=== PATIENT | male | born 1945 | race Caucasian/White ===

== ENCOUNTER 2017-05-17 17:57 | Observation (INO) ==
[2017-05-17] MEDS ORDERED: Ondansetron 4 MG/2 ML VIAL IVP ONE ×2 (18:09→19:44)
[2017-05-17] MEDS ORDERED: 0.9 % Sodium Chloride 1,000 ML IVC ONE (18:09)
--- NOTE | 2017-05-17 18:21 | Emergency Department Note ---
Disposition Clinical Impression: Calculus of left kidney Abdominal pain Qualifiers: Abdominal location: generalized Qualified Code(s): R10.84 - Generalized abdominal pain Vomiting Qualifiers: Vomiting type: unspecified Vomiting Intractability: non-intractable Nausea presence: with nausea Qualified Code(s): R11.2 - Nausea with vomiting, unspecified Disposition: Admitted As Inpatient Condition: Fair Referrals: NONE,PCP [Primary Care Provider] - Forms: ED Satisfaction Letter, Work/School Release Time of Disposition: 19:44 Abdominal Pain HPI - General Chief Complaint: ED Abdominal Pain Stated Complaint: ABD PAIN N/V/D Time Seen by Provider: 05/17/17 18:08 Source: patient Mode of arrival: EMS Limitations: no limitations Vital Signs Reviewed: Yes - History of Present Illness HPI Narrative: Marco Redman is a 71 year old male presenting with 12 hours of abdominal pain , nausea, vomiting, and diarrhea. He describes the pain as 8.5/10 in intensity, sharp in quality, and gradual in onset. He complains of anorexia. He states that he has had multiple abdominal surgeries, but he is unsure of what was done. He states that this pain feels similar to kidney stones that he has had in the past, but he denies urinary complaints. Pt Subjective Complaint: abdominal pain Onset (ago): day(s) Consistency: constant Location: diffuse Quality: aching - Related Data Home Medications Medication Instructions Recorded Confirmed No Known Home Drugs 05/17/17 05/17/17 Allergies Allergy/AdvReac Type Severity Reaction Status Date / Time No Known Allergies Allergy Verified 05/17/17 20:41 Constitutional: Reports: fever (subjective) Eyes: Denies: eye pain, eye discharge, vision change ENT ED: Denies: ear pain, throat pain, dental pain, hearing loss, epistaxis, congestion, dysphagia Cardiovascular: Denies: chest pain Respiratory: Denies: dyspnea Gastrointestinal: Reports: abdominal pain, nausea, vomiting, diarrhea. Denies: constipation, melena, hematochezia Genitourinary: Denies: urgency, dysuria, frequency, hematuria Musculoskeletal: Denies: back pain, neck pain, arthralgia, myalgia Integumentary: Denies: rash, abrasion, lesions Neurological: Denies: headache, weakness, numbness, paresthesias, confusion, abnormal gait, vertigo Psychiatric: Denies: anxiety, depression, suicidal thoughts, homicidal thoughts , auditory hallucinations, visual hallucinations Endocrine: Denies: fatigue Hematological/Lymphatic: Denies: easy bleeding, easy bruising Allergic/Immunologic: Denies: facial swelling, urticaria Physical Exam - General Limitations: no limitations General appearance: alert, in no apparent distress - Head Head exam: atraumatic, normocephalic - Eye Eye exam: Present: normal appearance, PERRL, EOMI - ENT ENT exam: normal exam, normal oropharynx, mucous membranes moist - Expanded ENT Exam External ear exam: Present: normal external inspection Mouth exam: Present: normal external inspection Teeth exam: Present: normal inspection Throat exam: Present: normal inspection - Neck Neck exam: Present: normal inspection, full ROM, trachea midline - Chest Chest inspection: Present: normal inspection, symmetric chest wall rise - Respiratory Respiratory exam: Present: normal lung sounds bilaterally. Absent: respiratory distress, accessory muscle use - Cardiovascular Cardiovascular exam: Present: regular rate, normal rhythm, normal heart sounds, +S1, +S2 - Abdominal Exam Abdominal exam: Present: soft, normal bowel sounds. Absent: distention, guarding, rebound, Mckinney's sign, Rovsing's sign, tenderness at McBurney's Point Abdominal tenderness: Present: diffuse, moderate - Extremities Exam Extremities exam: Present: normal inspection, full ROM. Absent: tenderness, pedal edema - Expanded Upper Extremity Exam Shoulder exam: Present: normal inspection, full ROM Arm exam: Present: normal inspection, full ROM Elbow exam: Present: normal inspection, full ROM Forearm/Wrist exam: Present: normal inspection, full ROM Hand exam: Present: normal inspection, full ROM Vascular exam: Normal: capillary refill, radial pulse - Expanded Lower Extremity Exam Hip/Pelvis exam: Present: normal inspection, full ROM Upper leg exam: Present: normal inspection, full ROM Knee exam: Present: normal inspection, full ROM Lower leg exam: Present: normal inspection, full ROM Ankle exam: Present: normal inspection, full ROM Foot/toe exam: Present: normal inspection, full ROM Neurovascular/Tendon exam: Absent: motor deficit, sensory deficit, tendon deficit - Back Exam Back exam: Present: normal inspection, full ROM. Absent: tenderness - Neurological Exam Neurological exam: Present: alert, oriented X3 - Expanded Neurological Exam Patient oriented to: Present: person, place, time Speech: Present: fluid speech Coma Scale Eye Opening: Spontaneous Coma Scale Motor Response: Obeys Commands Coma Scale Verbal Response: Confused Coma Scale Total: 14 - Psychiatric Psychiatric exam: Present: normal affect, normal mood - Skin Skin exam: Present: warm, dry, intact, normal color Course Course Narrative: Patient presents via EMS with 12 hours of abdominal pain, nausea, vomiting, and diarrhea. Patient borderline tachycardic on presentation. Ordered lactic acid, blood cultures, CBC, CMP, lipase, amylase, and urinalysis. Will investigate for cardiac cause with EKG and troponin. CT abd/pelv demonstrated a stone in the left renal pelvis with significant surrounding infiltration. Labs returned without significant findings. Case was discussed with urology, Dr. Lucero, who recommended admission. Patient discussed with admitting hospitalist who accepted the patient. Urology consult placed. - Consultations Consultation #1: I spoke with Dr. Nic gee to consult and admit to Hospitalist. Time: 20:15 Consultation #2: I spoke with Hospitalist Dr. Alexy gee to admit. Time: 20:30 Vital Signs Temperature 98.2 F 05/17/17 17:59 Pulse Rate 105 05/17/17 17:59 Respiratory Rate 22 05/17/17 17:59 Blood Pressure 179/109 05/17/17 17:59 O2 Sat by Pulse Oximetry 97 05/17/17 17:59 Temperature 98.2 F 05/17/17 17:59 Pulse Rate 103 05/17/17 20:26 Respiratory Rate 20 05/17/17 20:26 Blood Pressure 184/117 05/17/17 20:26 O2 Sat by Pulse Oximetry 95 05/17/17 20:26 Oxygen Delivery Oxygen Delivery Room Air Abdominal Pain - Medical Records Medical records reviewed: Yes I reviewed the patient's medical records. - Lab Data Lab results reviewed: Yes I reviewed the patient's lab results. Result diagrams: 05/17/17 19:38 05/17/17 18:34 Lab Results 05/17/17 05/17/17 05/17/17 Range/Units 18:33 18:34 18:34 WBC (4.3-11.1) K/mcL RBC (4.19-5.50) M/mcL Hgb (12.9-16.9) g/dL Hct (37.5-50.1) % MCV (83.0-100.0) fL MCH (28.0-33.3) pg MCHC (31.6-35.5) g/dL RDW (11.5-14.5) % Plt Count (140-400) K/mcL MPV (9.4-12.4) fL Immature Gran % (0-4) % Seg Neutrophils % % Lymphocytes % % Monocytes % % Eosinophils % % Basophils % % Neutrophils # (1.6-8.9) K/mcL Lymphocytes # (0.6-4.6) K/mcL Monocytes # (0.0-1.3) K/mcL Eosinophils # (0.0-0.6) K/mcL Basophils # (0.0-0.2) K/mcL Sodium 139 (136-145) mEq/L Potassium 3.8 (3.5-5.1) mEq/L Chloride 106 (98-107) mEq/L Carbon Dioxide 25 (23-29) mEq/L BUN 13 (8-23) mg/dL Creatinine 0.95 (0.70-1.30) mg/dL Est GFR ( Amer) > 60 (> 60) Est GFR (Non-Af Amer) > 60 (> 60) BUN/Creatinine Ratio 14 (6-26) Glucose 143 H (70-105) mg/dL Calculated Osmolality 291 (280-300) Lactic Acid (0.5-2.2) mmol/L Calcium 9.4 (8.6-10.3) mg/dL Total Bilirubin 0.6 (0.3-1.0) mg/dL Direct Bilirubin 0.2 (0.0-0.2) mg/dL Indirect Bilirubin 0.4 (0.0-1.2) mg/dL AST 13 (13-39) Units/L ALT 8 (7-52) Units/L Alkaline Phosphatase 101 (34-104) Units/L Troponin I < 0.03 (< 0.04) ng/mL Serum Total Protein 7.3 (6.4-8.9) g/dL Albumin 4.0 (3.5-5.7) g/dL Globulin 3.3 (2.4-3.5) g/dL Albumin/Globulin Ratio 1.2 (1.1-2.2) Amylase 40 (29-103) Units/L Lipase 14 (11-82) Units/L Urine Color (Yellow) Urine Clarity (Clear) Urine pH (5.0-8.0) pH Units Ur Specific [place] (1.010-1.025) Urine Protein (Neg-Trace) mg/dL Urine Glucose (UA) (Normal) mg/dL Urine Ketones (Negative) mg/dL Urine Blood (Negative) Urine Nitrite (Negative) Urine Bilirubin (Negative) Urine Urobilinogen (Normal) mg/dL Ur Leukocyte Esterase (Negative) Urine Microscopic RBC (0-3) per hpf Urine Microscopic WBC (0-3) per hpf Ur Squamous Epith Cells (None-Few) per lpf Urine Bacteria (None-Few) per hpf Hyaline Casts (None-Few) per lpf Ur Culture Indicated? (NO) Specimen Rejected Clotted 05/17/17 05/17/17 05/17/17 Range/Units 18:34 19:31 19:38 WBC 8.7 (4.3-11.1) K/mcL RBC 5.39 (4.19-5.50) M/mcL Hgb 15.9 (12.9-16.9) g/dL Hct 47.1 (37.5-50.1) % MCV 87.4 (83.0-100.0) fL MCH 29.5 (28.0-33.3) pg MCHC 33.8 (31.6-35.5) g/dL RDW 14.8 H (11.5-14.5) % Plt Count 159 (140-400) K/mcL MPV 11.1 (9.4-12.4) fL Immature Gran % 0.7 (0-4) % Seg Neutrophils % 86.6 % Lymphocytes % 5.2 % Monocytes % 6.7 % Eosinophils % 0.5 % Basophils % 0.3 % Neutrophils # 7.5 (1.6-8.9) K/mcL Lymphocytes # 0.5 L (0.6-4.6) K/mcL Monocytes # 0.6 (0.0-1.3) K/mcL Eosinophils # 0.0 (0.0-0.6) K/mcL Basophils # 0.0 (0.0-0.2) K/mcL Sodium (136-145) mEq/L Potassium (3.5-5.1) mEq/L Chloride (98-107) mEq/L Carbon Dioxide (23-29) mEq/L BUN (8-23) mg/dL Creatinine (0.70-1.30) mg/dL Est GFR ( Amer) (> 60) Est GFR (Non-Af Amer) (> 60) BUN/Creatinine Ratio (6-26) Glucose (70-105) mg/dL Calculated Osmolality (280-300) Lactic Acid 1.2 (0.5-2.2) mmol/L Calcium (8.6-10.3) mg/dL Total Bilirubin (0.3-1.0) mg/dL Direct Bilirubin (0.0-0.2) mg/dL Indirect Bilirubin (0.0-1.2) mg/dL AST (13-39) Units/L ALT (7-52) Units/L Alkaline Phosphatase (34-104) Units/L Troponin I (< 0.04) ng/mL Serum Total Protein (6.4-8.9) g/dL Albumin (3.5-5.7) g/dL Globulin (2.4-3.5) g/dL Albumin/Globulin Ratio (1.1-2.2) Amylase (29-103) Units/L Lipase (11-82) Units/L Urine Color Yellow (Yellow) Urine Clarity Clear (Clear) Urine pH 6.0 (5.0-8.0) pH Units Ur Specific [place] 1.022 (1.010-1.025) Urine Protein 30 H (Neg-Trace) mg/dL Urine Glucose (UA) Normal (Normal) mg/dL Urine Ketones Negative (Negative) mg/dL Urine Blood Negative (Negative) Urine Nitrite Negative (Negative) Urine Bilirubin Negative (Negative) Urine Urobilinogen Normal (Normal) mg/dL Ur Leukocyte Esterase Negative (Negative) Urine Microscopic RBC 5-15 H (0-3) per hpf Urine Microscopic WBC 3-5 H (0-3) per hpf Ur Squamous Epith Cells Many H (None-Few) per lpf Urine Bacteria None Seen (None-Few) per hpf Hyaline Casts None Seen (None-Few) per lpf Ur Culture Indicated? NO (NO) Specimen Rejected - Radiology Data Radiology results reviewed: Yes I reviewed the patient's radiology results. Abdomen/Pelvis CT 05/17/17 18:12 IMPRESSION: 1. Marked infiltration adjacent to the left renal pelvis. No significant hydronephrosis. There is 1 or 2 mm left UPJ calculus with 5 x 8 mm calculus in the left renal pelvis. Additional nonobstructive left renal calculi. 2. Cholelithiasis with no acute features. 3. No CT evidence of appendicitis. 4. Mild prostatomegaly. D/ / 05/17/2017 19:14:45 Chong Ahmadi MD / ladan Interpreting Provider: Chong Ahmadi MD - EKG Data EKG attestation: Yes I reviewed and interpreted this EKG. EKG shows normal: sinus rhythm Rate: normal Rhythm: NSR [place]/QRS: left axis deviation Interpretation: no acute changes Attestation Statement - Attestation Attestation: I examined this patient and my medical decision-making was reviewed with the Resident Physician. I agree with the documented findings, disposition and treatment plan as described except to the extent set forth below. Pt presents with abdominal pain, n/v since last night. Pt states it feels like his previous kidney stones. Pt has generalized abdominal tenderness or exam. Pt denies cp, soa. Pt had a stone in the renal pelvis with stranding. Pt still had n/v after medication and is still having pain so we will admit. We talked to Urology Dr. Nic gee to admit to Hospitalist and he will consult. Spoke with Hospitalist gerard to admit.
[2017-05-17 19:09] LABS: Alanine Aminotransferase 8 Units/L (7-52); Albumin/Globulin Ratio 1.2 (1.1-2.2); Alkaline Phosphatase 101 Units/L (34-104); Amylase 40 Units/L (29-103); Aspartate Amino Transferase 13 Units/L (13-39); BUN/Creatinine Ratio 14 (6-26); Bilirubin,Direct 0.2 mg/dL (0.0-0.2); Bilirubin,Indirect 0.4 mg/dL (0.0-1.2); Bilirubin,Total 0.6 mg/dL (0.3-1.0); Blood Urea Nitrogen 13 mg/dL (8-23); Calcium 9.4 mg/dL (8.6-10.3); Carbon Dioxide 25 mEq/L (23-29); Chloride 106 mEq/L (98-107); Globulin 3.3 g/dL (2.4-3.5); Glucose 143 mg/dL (70-105); Lipase 14 Units/L (11-82); Osmolality,Calculated 291 (280-300); Potassium 3.8 mEq/L (3.5-5.1); Sodium 139 mEq/L (136-145); Total Protein 7.3 g/dL (6.4-8.9); eGFR For African Americans > 60 (> 60); eGFR For Non-African Americans > 60 (> 60)
[2017-05-17 19:36] LABS: Bilirubin,Urine Negative (Negative); Blood,Urine Negative (Negative); Clarity,Urine Clear (Clear); Color,Urine Yellow (Yellow); Glucose,Urine (UA) Normal (Normal); Ketones,Urine Negative (Negative); Leukocyte Esterase,Urine Negative (Negative); Nitrite,Urine Negative (Negative); Protein,Urine 30 mg/dL (Neg-Trace); Specific Gravity,Urine 1.022 (1.010-1.025); Urobilinogen,Urine Normal (Normal)
[2017-05-17 19:38] LABS: Bacteria,Urine None Seen per hpf (None-Few); Hyaline Casts,Urine None Seen per lpf (None-Few); Squamous Epithelial Cell,Urine Many per lpf (None-Few)
[2017-05-17 19:49] LABS: Basophils % 0.3 %; Eosinophils % 0.5 %; Hematocrit 47.1 % (37.5-50.1); Hemoglobin 15.9 g/dL (12.9-16.9); Immature Granulocytes % 0.7 % (0-4); Lymphocytes # 0.5 K/mcL (0.6-4.6); Lymphocytes % 5.2 %; Mean Corpuscular HGB Conc 33.8 g/dL (31.6-35.5); Mean Corpuscular Hemoglobin 29.5 pg (28.0-33.3); Mean Corpuscular Volume 87.4 fL (83.0-100.0); Mean Platelet Volume 11.1 fL (9.4-12.4); Monocytes # 0.6 K/mcL (0.0-1.3); Monocytes % 6.7 %; Neutrophils # 7.5 K/mcL (1.6-8.9); Platelet Count 159 K/mcL (140-400); Red Blood Count 5.39 M/mcL (4.19-5.50); Red Cell Distribution Width 14.8 % (11.5-14.5); Segmented Neutrophils % 86.6 %
[2017-05-17] MEDS ORDERED: cefTRIAXone 1,000 MG in Water for inj. (sterile) 20 ML 10 ML IVP ONE (20:22)
[2017-05-17] MEDS ORDERED: Acetaminophen 325 MG TABLET PO PRN (20:35)
[2017-05-17] MEDS ORDERED: Naloxone 0.4 MG/ML INJ IVP PRN (20:35)
[2017-05-17] MEDS ORDERED: Ondansetron 4 MG/2 ML VIAL IVP PRN (20:37)
--- NOTE | 2017-05-17 20:40 | Internal Med History&Physical ---
Date of Encounter: 05/17/17 Time of Encounter: 20:38 Assessment and Plan (1) Calculus of left kidney Current visit: Yes Status: Acute Admit to hospitalist. Consult urology. Nothing by mouth after midnight. Pain control. Antiemetics. Patient had received a dose of ceftriaxone. Urine looks clean. Patient is afebrile. Hold off on further antibiotics. Gentle hydration. (2) Vomiting Current visit: Yes Status: Acute Symptomatic treatment as above. Likely stemming from the kidney stone. Qualifiers: Vomiting type: unspecified Vomiting Intractability: non-intractable Nausea presence: with nausea Qualified Code(s): R11.2 - Nausea with vomiting, unspecified (3) DVT prophylaxis Current visit: Yes Status: Acute Heparin subcutaneous Internal Medicine - H&P: HPI Chief complaint: Nausea vomiting Admitted From: Emergency Dept Plans for Post Hospital Care: Home History of present illness: Mr. Redman is a 71 year old male with history of kidney stones who has been dealing with abdominal pain mainly in the left flank, nausea and vomiting for about 12 hours or so. Pain is very intense and sharp in quality. He presented to the emergency department and workup showed unremarkable urine. Labs were mostly unremarkable as well. CT abdomen and pelvis showed marked infiltration adjacent to the left renal pelvis. There is one or 2 mm left UPJ calculus with 5 x 8 mm calculus in the left renal pelvis. There was additional nonobstructive left renal calculi. The patient denies any fever, or chills, headache, blurry vision, chest pain, shortness of breath, neurological symptoms. Urology were consulted in the emergency department and recommended admission. Patient received a dose of Rocephin in the ED. Past Med Surg Social Fam HX - Past Medical History Medical history: hyperlipidemia, hypertension Psychiatric history: anxiety, depression - Social History Smoking Status: Current every day smoker Smokeless Tobacco Status: No Alcohol use: rarely Drug use: none Internal Medicine - H&P: Meds 3 Allergy/AdvReac Type Severity Reaction Status Date / Time No Known Allergies Allergy Verified 05/17/17 18:10 All Systems PM: A 10-system review of systems was performed and is negative for pertinent findings except as documented above in the HPI. Review of systems: All systems reviewed are negative except for as mentioned above - Constitutional Vitals: Temp Pulse Resp BP Pulse Ox 98.2 F 103 20 184/117 95 04/02/18 17:59 05/17/17 20:26 05/17/17 20:26 05/17/17 20:26 05/17/17 20:26 Exam: GEN: NAD HEENT: AT, NC, No cyanosis, oral mucosa is moist, No JVD Lymphatics: No lymphadenoapthy Eyes: Extrocular muscles intact, anicteric CVS:RRR. S1, S2, No m/r/g RESP: CTAB ABD: Soft, NT, ND, +BS EXT: No edema, No rashes, 2+ DP. Left CVA tenderness NEURO: Nonfocal, CN II-XII intact, No focal motor or sensory deficits Psych: Cooperative, Not anxious or depressed Internal Med - H&P Results - Labs CBC & Chem 7: 05/17/17 19:38 05/17/17 18:34 Labs: Short CBC 05/17/17 Range/Units 19:38 WBC 8.7 (4.3-11.1) K/mcL Hgb 15.9 (12.9-16.9) g/dL Hct 47.1 (37.5-50.1) % Plt Count 159 (140-400) K/mcL Neutrophils # 7.5 (1.6-8.9) K/mcL BMP 05/17/17 18:34 Sodium 139 Potassium 3.8 Chloride 106 Carbon Dioxide 25 BUN 13 Creatinine 0.95 Glucose 143 H Calcium 9.4 Cardiac Enzymes 05/17/17 Range/Units 18:34 Troponin I < 0.03 (< 0.04) ng/mL Liver Function 05/17/17 Range/Units 18:34 Total Bilirubin 0.6 (0.3-1.0) mg/dL Direct Bilirubin 0.2 (0.0-0.2) mg/dL AST 13 (13-39) Units/L ALT 8 (7-52) Units/L Alkaline Phosphatase 101 (34-104) Units/L Albumin 4.0 (3.5-5.7) g/dL Urine 05/17/17 Range/Units 19:31 Urine Color Yellow (Yellow) Urine Clarity Clear (Clear) Urine pH 6.0 (5.0-8.0) pH Units Ur Specific [place] 1.022 (1.010-1.025) Urine Protein 30 H (Neg-Trace) mg/dL Urine Glucose (UA) Normal (Normal) mg/dL - Impressions ITS Impressions Abdomen/Pelvis CT 05/17/17 18:12 IMPRESSION: 1. Marked infiltration adjacent to the left renal pelvis. No significant hydronephrosis. There is 1 or 2 mm left UPJ calculus with 5 x 8 mm calculus in the left renal pelvis. Additional nonobstructive left renal calculi. 2. Cholelithiasis with no acute features. 3. No CT evidence of appendicitis. 4. Mild prostatomegaly. D/ : / 05/17/2017 19:14:45 Chong Ahmadi MD / ladan Interpreting Provider: Chong Ahmadi MD
[2017-05-17] MEDS ORDERED: Ketorolac 30 MG/ML VIAL IVP PRN (21:19)
[2017-05-17] MEDS: 0.9 % Sodium Chloride 1,000 ML IVC SCH (22:09)
[2017-05-17] MEDS: *HR* Heparin 5,000 UNIT/ML VIAL SQ SCH (22:15)
[2017-05-18] MEDS: *HR* Heparin 5,000 UNIT/ML VIAL SQ SCH ×3 (06:00→20:11)
--- NOTE | 2017-05-18 07:23 | Urology - Consult Note ---
Date of Encounter: 05/18/17 Time of Encounter: 07:21 - Assessment and Plan (1) Calculus of left kidney Current Visit: Yes Status: Acute Assessment and plan: 71-year-old man presents with a history of abdominal pain and nephrolithiasis. I reviewed his CT scan. He is having some discomfort. He wishes to have a stone removed. I recommend proceeding with a left ureteroscopy, laser lithotripsy, and stent placement. He was informed of the risks of the procedure including but not limited to bleeding, infection, injury to other structures, need for further procedures, stent irritation, incomplete fragmentation, ureteral perforation, need for nephrostomy tube, need for open repair, risks unforeseen, and the risk of anesthesia. He is willing to proceed. Urology CN:TRENT[place] Consult date: 05/18/17 Reason for consult Urology: Other (Left ureteral stone) History of present illness: 71-year-old male with a history nephrolithiasis presents with a history of abdominal pain. The pain was located in the lower abdomen and radiated to the groin. He had noted the pain for about 3 days. He reports having a history of kidney stones. He presented to the emergency room. A CT scan was performed which showed concern for an obstructing left proximal ureteral stone as well as a few small stones within the left kidney. He denies any fevers or chills. He has noted some nausea. Past Med Surg Social Fam HX - Past Medical History Medical history: hyperlipidemia, hypertension Psychiatric history: anxiety, depression - Social History Smoking Status: Current every day smoker Smokeless Tobacco Status: No Alcohol use: rarely Drug use: none - Family History Father Hx Family Cancer: Yes (Unsure what type) Medications and Allergies No Known Home Drugs 05/17/17 [History] 3 Allergy/AdvReac Type Severity Reaction Status Date / Time No Known Allergies Allergy Verified 05/17/17 20:41 Review of Systems - Constitutional no chills, no fever(s) - EENT Nose, mouth and throat: no dizziness - Cardiovascular no chest pain - Respiratory no dyspnea - Gastrointestinal nausea, no vomiting - Genitourinary flank pain, no hematuria - Musculoskeletal no back pain - Integumentary no erythema, no rash - Neurological no weakness - Psychiatric no suicidal ideation - Hematologic/Lymphatic no easy bleeding - Allergic/Immunologic no wheezing Exam Initial Vital Signs Temp Pulse Resp BP Pulse Ox 98.2 F 105 22 179/109 97 05/17/17 17:59 05/17/17 17:59 05/17/17 17:59 05/17/17 17:59 05/17/17 17:59 - General physical appearance Present: well developed, well nourished, no distress - Eyes Absent: icteric - ENT Present: normal nares - Neck Present: trachea midline - Respiratory Present: normal respiratory effort - Cardiovascular Cardiovascular exam IM: RRR - Abdomen Abdomen: Present: soft - Integumentary Present: no rash - Neurologic Present: normal coordination - Musculoskeletal Present: other (Normal strength) Urology Results - Labs 05/17/17 19:38 05/17/17 18:34 Abnormal lab results RDW 14.8 % (11.5-14.5) H 05/17/17 19:38 Lymphocytes # 0.5 K/mcL (0.6-4.6) L 05/17/17 19:38 Glucose 143 mg/dL (70-105) H 05/17/17 18:34 Urine Protein 30 mg/dL (Neg-Trace) H 05/17/17 19:31 Urine Microscopic RBC 5-15 per hpf (0-3) H 05/17/17 19:31 Urine Microscopic WBC 3-5 per hpf (0-3) H 05/17/17 19:31 Ur Squamous Epith Cells Many per lpf (None-Few) H 05/17/17 19:31 All other labs normal. - Imaging CT scan - abdomen: report reviewed, image reviewed CT scan - pelvis: report reviewed, image reviewed Consult Discharge Plan - Plan Referrals: Marco Antonio Lucero MD [Partnered Physician] -
[2017-05-18] MEDS: 0.9 % Sodium Chloride 1,000 ML IVC SCH (11:30)
--- NOTE | 2017-05-18 12:47 | Internal Med Progress Note ---
Date of Encounter: 05/18/17 Time of Encounter: 12:46 - Assessment and plan (1) Calculus of left kidney Current Visit: Yes Status: Acute Assessment and plan: Urology eval noted Continue IVF For left ureteroscopy, laser lithotripsy, and stent placement today (2) Vomiting Current Visit: Yes Status: Acute Assessment and plan: Improved with symptomatic treatment Qualifiers: Vomiting type: unspecified Vomiting Intractability: non-intractable Nausea presence: with nausea Qualified Code(s): R11.2 - Nausea with vomiting, unspecified (3) DVT prophylaxis Current Visit: Yes Status: Acute Assessment and plan: SQ heparin - Time Spent With Patient Total time spent is greater than 50% in coordination of care (as documented) at patient's floor/unit and/or counseling patient: - Subjective Interval history: Seen and evaluated at bedside No new complains awaiting urology procedure - Constitutional Vitals: Temp Pulse Resp BP Pulse Ox 97.9 F 97 19 114/65 96 05/18/17 10:36 05/18/17 10:36 05/18/17 10:36 05/18/17 10:36 05/18/17 10:36 General appearance: Present: A&O X 3, pleasant, no acute distress - Head Head exam: Present: atraumatic, normocephalic - Eye Eye exam: Present: PERRL, conjuntiva pink, sclera anicteric Pupils: Present: PERRL - Neck Neck exam general surgery: Present: supple, trachea midline. Absent: lymphadenopathy - Respiratory Respiratory exam: Present: CTAB. Absent: accessory muscle use, rales, rhonchi, wheezes - Cardiovascular Cardiovascular exam: Present: RRR, +S1, +S2. Absent: diastolic murmur, gallop, rubs, systolic murmur - GI/Abdominal GI/Abdominal exam: Present: normal bowel sounds, soft, no peritoneal signs. Absent: distended, tenderness - Extremities Exam Extremities exam: Present: warm, radial pulses palpable and symmetrical. Absent : calf tenderness, cyanotic, pedal edema - Back Exam Back exam: Absent: CVA tenderness (L), CVA tenderness (R) - Neurological Exam Neurological exam: Present: alert, CN II-XII intact, oriented X3, no focal deficits. Absent: pronater drift, facial droop, speech deficit - Skin Skin exam: Present: dry, intact Internal Medicine: Result - Labs CBC & Chem 7: 05/17/17 19:38 05/17/17 18:34 Consult Discharge Plan - Plan Referrals: Marco Antonio Lucero MD [Partnered Physician] -
[2017-05-18] MEDS ORDERED: Lidocaine -MPF 2% 2 ML VIAL ONE ×3 (13:20→16:00)
[2017-05-18] MEDS ORDERED: *HR* Propofol 200 MG/20 ML VIAL IVP ONE ×3 (13:21→16:01)
--- NOTE | 2017-05-18 15:39 | Anesthesia Evaluation PreOp ---
Date of Encounter: 05/18/17 Time of Encounter: 15:36 - Past History Planned Operation: L-Ureteroscopic stone extraction Cardiac History: HTN, Hyperlipidemia Pulmonary History: Smoker (quit 15 yrs ago), SHAYNE Dx (NO CPAP use) FIELD SALES REPRESENTATIVE History: Other (Anxiety/Depression) Other Medical History: Renal (L-kidney calculus associated w/ N&V), Diabetes Type II ("Borderline DM" per Pt) Anesthesia History: No Prior Anesthetic Complications, Past Anesthesia ( Ureteroscopic Stone Extractions) Alcohol Use: rarely, heavy (REMOTE heavy use >15yrs ago) Drug use: none Medications and Allergies No Known Home Drugs 05/17/17 [History] 3 Allergy/AdvReac Type Severity Reaction Status Date / Time No Known Allergies Allergy Verified 05/17/17 20:41 - Meds/Allergy Pre-op Review Medications Reviewed: Yes Allergies Reviewed: Yes Beta Blockers on Current Med List: No Anesthesia Results - Labs 05/17/17 19:38 05/17/17 18:34 Laboratory Results WBC 8.7 K/mcL (4.3-11.1) 05/17/17 19:38 RBC 5.39 M/mcL (4.19-5.50) 05/17/17 19:38 Hgb 15.9 g/dL (12.9-16.9) 05/17/17 19:38 Hct 47.1 % (37.5-50.1) 05/17/17 19:38 MCV 87.4 fL (83.0-100.0) 05/17/17 19:38 MCH 29.5 pg (28.0-33.3) 05/17/17 19:38 MCHC 33.8 g/dL (31.6-35.5) 05/17/17 19:38 RDW 14.8 % (11.5-14.5) H 05/17/17 19:38 Plt Count 159 K/mcL (140-400) 05/17/17 19:38 MPV 11.1 fL (9.4-12.4) 05/17/17 19:38 Immature Gran % 0.7 % (0-4) 05/17/17 19:38 Seg Neutrophils % 86.6 % 05/17/17 19:38 Lymphocytes % 5.2 % 05/17/17 19:38 Monocytes % 6.7 % 05/17/17 19:38 Eosinophils % 0.5 % 05/17/17 19:38 Basophils % 0.3 % 05/17/17 19:38 Neutrophils # 7.5 K/mcL (1.6-8.9) 05/17/17 19:38 Lymphocytes # 0.5 K/mcL (0.6-4.6) L 05/17/17 19:38 Monocytes # 0.6 K/mcL (0.0-1.3) 05/17/17 19:38 Eosinophils # 0.0 K/mcL (0.0-0.6) 05/17/17 19:38 Basophils # 0.0 K/mcL (0.0-0.2) 05/17/17 19:38 Sodium 139 mEq/L (136-145) 05/17/17 18:34 Potassium 3.8 mEq/L (3.5-5.1) 05/17/17 18:34 Chloride 106 mEq/L (98-107) 05/17/17 18:34 Carbon Dioxide 25 mEq/L (23-29) 05/17/17 18:34 BUN 13 mg/dL (8-23) 05/17/17 18:34 Creatinine 0.95 mg/dL (0.70-1.30) 05/17/17 18:34 Est GFR ( Amer) > 60 (> 60) 05/17/17 18:34 Est GFR (Non-Af Amer) > 60 (> 60) 05/17/17 18:34 BUN/Creatinine Ratio 14 (6-26) 05/17/17 18:34 Glucose 143 mg/dL (70-105) H 05/17/17 18:34 POC Glucose 82 mg/dL (68-89) 05/18/17 11:36 Calculated Osmolality 291 (280-300) 05/17/17 18:34 Lactic Acid 1.2 mmol/L (0.5-2.2) 05/17/17 18:34 Calcium 9.4 mg/dL (8.6-10.3) 05/17/17 18:34 Total Bilirubin 0.6 mg/dL (0.3-1.0) 05/17/17 18:34 Direct Bilirubin 0.2 mg/dL (0.0-0.2) 05/17/17 18:34 Indirect Bilirubin 0.4 mg/dL (0.0-1.2) 05/17/17 18:34 AST 13 Units/L (13-39) 05/17/17 18:34 ALT 8 Units/L (7-52) 05/17/17 18:34 Alkaline Phosphatase 101 Units/L (34-104) 05/17/17 18:34 Troponin I < 0.03 ng/mL (< 0.04) 05/17/17 18:34 Serum Total Protein 7.3 g/dL (6.4-8.9) 05/17/17 18:34 Albumin 4.0 g/dL (3.5-5.7) 05/17/17 18:34 Globulin 3.3 g/dL (2.4-3.5) 05/17/17 18:34 Albumin/Globulin Ratio 1.2 (1.1-2.2) 05/17/17 18:34 Amylase 40 Units/L (29-103) 05/17/17 18:34 Lipase 14 Units/L (11-82) 05/17/17 18:34 Urine Color Yellow (Yellow) 05/17/17 19:31 Urine Clarity Clear (Clear) 05/17/17 19:31 Urine pH 6.0 pH Units (5.0-8.0) 05/17/17 19:31 Ur Specific [place] 1.022 (1.010-1.025) 05/17/17 19:31 Urine Protein 30 mg/dL (Neg-Trace) H 05/17/17 19:31 Urine Glucose (UA) Normal mg/dL (Normal) 05/17/17 19:31 Urine Ketones Negative mg/dL (Negative) 05/17/17 19:31 Urine Blood Negative (Negative) 05/17/17 19:31 Urine Nitrite Negative (Negative) 05/17/17 19:31 Urine Bilirubin Negative (Negative) 05/17/17 19:31 Urine Urobilinogen Normal mg/dL (Normal) 05/17/17 19:31 Ur Leukocyte Esterase Negative (Negative) 05/17/17 19:31 Urine Microscopic RBC 5-15 per hpf (0-3) H 05/17/17 19:31 Urine Microscopic WBC 3-5 per hpf (0-3) H 05/17/17 19:31 Ur Squamous Epith Cells Many per lpf (None-Few) H 05/17/17 19:31 Urine Bacteria None Seen per hpf (None-Few) 05/17/17 19:31 Hyaline Casts None Seen per lpf (None-Few) 05/17/17 19:31 Ur Culture Indicated? NO (NO) 05/17/17 19:31 Specimen Rejected Clotted 05/17/17 18:33 Impressions Abdomen/Pelvis CT 05/17/17 18:12 IMPRESSION: 1. Marked infiltration adjacent to the left renal pelvis. No significant hydronephrosis. There is 1 or 2 mm left UPJ calculus with 5 x 8 mm calculus in the left renal pelvis. Additional nonobstructive left renal calculi. 2. Cholelithiasis with no acute features. 3. No CT evidence of appendicitis. 4. Mild prostatomegaly. D/ / 05/17/2017 19:14:45 Chong Ahmadi MD / ladan Interpreting Provider: Chong Ahmadi MD - Imaging EKG: image reviewed (88bpm SR, with SA. Pattern c/w Pulmonary Dz. LAD) Anesthesia Exam Vital Signs Temp Pulse Resp BP Pulse Ox 05/18/17 14:56 98.6 F 81 18 106/79 93 05/18/17 10:36 97.9 F 97 19 114/65 96 05/18/17 05:13 98.1 F 91 16 119/67 94 05/17/17 22:04 98.8 F 97 16 185/98 93 05/17/17 21:57 18 174/108 05/17/17 21:00 88 16 184/104 91 05/17/17 20:26 103 20 184/117 95 05/17/17 19:31 101 16 199/105 92 05/17/17 18:17 91 16 172/106 94 05/17/17 17:59 98.2 F 105 22 179/109 97 Intake and Output 05/17/17 05/18/17 05/18/17 23:59 07:59 15:59 Intake Total 1000 / 1000 0 / 0 1000 / 1000 Output Total 0 / 0 0 / 0 Balance 1000 / 1000 0 / 0 1000 / 1000 Intake: IV Fluids 1000 / 1000 1000 / 1000 0.9 % Sodium Chloride 1,000 ML 1000 / 1000 1000 / 1000 @ 100 mls/hr IVC .Q10H CATHY Rx#: [id number] Oral 0 / 0 Output: Urine 0 / 0 0 / 0 Other: Meal npo Percent of Meal Consumed 0% Stool Characteristics Normal for Patient # Voids 1 Weight 74.843 kg Blood Glucose* 127 82 Height: 5'2" Weight: 165# BMI = 30.2 NPO (# of Hours): MNOc - HEENT Pupil (Motor): Pupils equal, EOMI Mallampati: III Teeth: Edentulous Oral Opening: Greater than 3 - FIELD SALES REPRESENTATIVE LOC: Oriented FIELD SALES REPRESENTATIVE Motor: Normal RUE, Normal LUE, Normal RLE, Normal LLE, Normal Face FIELD SALES REPRESENTATIVE Sensory: Normal: RUE, LUE, RLE, LLE, Face - Cardiac Rhythm: Regular Murmur: None - Pulmonary Breath Sounds: bilateral Clear Respiratory Effort: Symmetrical Anesthesia Assess/Plan ASA Score: 3 Anes Supervising Prov Stmt: Pt seen/evaluated. R&B discussed, questions answered and consent obtained. Luis Manuel Olmedo MD
[2017-05-18] MEDS ORDERED: Dexamethasone 4 MG/ML VIAL ONE (16:00)
[2017-05-18] MEDS ORDERED: Ondansetron 4 MG/2 ML VIAL ONE (16:00)
[2017-05-18] MEDS ORDERED: *HR* FentaNYL (PF) 100 MCG/2 ML VIAL ONE (16:01)
[2017-05-18] MEDS ORDERED: Acetaminophen IV 1,000 MG/100 ML INFUS..BTL ONE (16:01)
[2017-05-18] MEDS ORDERED: Isovue-300 50 ML VIAL IVP ONE (16:05)
[2017-05-18] MEDS ORDERED: *HR* PHENYLEPHRINE 1,000 MCG/10 ML SYRINGE IVP ONE (16:40)
[2017-05-18] MEDS ORDERED: *HR* Meperidine 25 MG/ML SYRINGE IVP PRN (16:52)
[2017-05-18] MEDS ORDERED: *HR* OxyCODONE Immed Rel 5 MG TABLET PO PRN (16:52)
[2017-05-18] MEDS ORDERED: *HR* Promethazine 25 MG/ML VIAL IVP PRN (16:52)
[2017-05-18] MEDS ORDERED: MORPHINE SUL Oral CONC 10 MG/0.5 ML ORAL.SYG SL PRN (16:52)
[2017-05-18] MEDS ORDERED: *HR* Labetalol 20 MG/4 ML SYRINGE IVP PRN (16:52)
--- NOTE | 2017-05-18 17:20 | Operative Note ---
Date of procedure: 05/18/17 Pre-op diagnosis: Left renal pelvis stone Post-op diagnosis: same Procedure: Left ureteroscopy, laser lithotripsy, basket stone extraction, and stent placement Implants: 6 Cymraes x 26cm JJ stent Complications: none Anesthesia: ROMEO Surgeon: Marco Antonio Lucero Was there an sales office assistant present: No Estimated blood loss (cc): 1 Specimen: left renal stone Condition: stable Disposition: PACU Procedure in Detail: Indications: Mr. Redman is a 71-year-old male who has a history of nephrolithiasis. He presented with left flank pain. A CT scan showed a stone within the left renal pelvis. He elected to undergo a left ureteroscopy, laser lithotripsy, and basket stone extraction with stent placement. He was aware of the risks of the procedure including but not limited to bleeding, infection, injury to other structures, need for further procedures, stent irritation, need for nephrostomy tube, need for open repair, risks otherwise unforeseen, and the risk of anesthesia. He is willing to proceed. Procedure in Detail: After informed consent was obtained the patient was brought back to the operating room and placed in supine position. A time out was performed. General anesthesia was administered and an LMA was placed. He was then placed in the lithotomy position. He was prepped and draped in the usual sterile fashion. Cystoscopy was performed. The anterior urethra was normal. There was no evidence of bladder tumors. The ureteral orifices were in the normal orthotopic position. There was no duplication of the ureteral orifices. The sensor wire was placed in the left ureteral orifice. The wire was then brought up into the kidney under fluoroscopic guidance. I then passed the 8/10 Cymraes dilator. The ZIP wire was then placed. I then passed the 11/13-Cymraes ureteral access sheath. The sheath and into the proximal ureter but resistance was then met. The inner obturator was removed. The flexible ureteroscope was advanced into the renal pelvis. 2 stones were noted there. These were fragmented using the 200 micron laser fiber. The stone fragments were then basket extracted. The ureteroscope was then removed and the pullout ureteroscopy showed no stone fragments in the ureter. A 6 Cymraes by 26cm JJ stent was then placed. The dangle strings were left intact and secured to the penis with a Tegaderm. The bladder was drained. The patient was then awakened from general anesthesia and brought to recovery room in good condition. All sponge, needle, and instrument counts were correct.
--- NOTE | 2017-05-18 19:32 | Electrocardiograph Report ---
[place] [id number] Test Date: 2017-05-17 Pat Name: Marco Redman Department: [id number] Room: 3A33 Gender: M Call Taker: Am : 1945 Requested By: Jeremy Limon Order Number: [id number] Reading MD: Gato Cheek Measurements Intervals [place] Rate: 88 P: 30 TX: 154 QRS: -44 QRSD: 92 T: 42 QT: 345 QTc: 390 Interpretive Statements SINUS RHYTHM WITH SINUS ARRHYTHMIA MARKED LEFT AXIS DEVIATION INCOMPLETE RIGHT BUNDLE BRANCH BLOCK Electronically Signed On 05-18-2017 19:30:46 EDT by Gato Cheek
[2017-05-18] MEDS ORDERED: Acetaminophen 325 MG TABLET PO PRN (19:36)
[2017-05-18] MEDS ORDERED: 0.9 % Sodium Chloride 1,000 ML IVC SCH (19:36)
[2017-05-18] MEDS ORDERED: Naloxone 0.4 MG/ML INJ IVP PRN (19:36)
[2017-05-18] MEDS ORDERED: Ondansetron 4 MG/2 ML VIAL IVP PRN (19:36)
[2017-05-18] MEDS: *HR* OxyCODONE/APAP 5/325 TABLET PO PRN (20:11)
--- NOTE | 2017-05-18 20:25 | Anesthesia Evaluation Post Op ---
Date of Encounter: 05/18/17 Time of Encounter: 18:40 - Vital Signs Vital Signs: Last Vital Signs Temp 98.2 F 05/18/17 18:41 Pulse 73 05/18/17 18:41 Resp 16 05/18/17 18:41 BP 120/80 05/18/17 18:41 Pulse Ox 94 05/18/17 18:41 - Lungs Lungs: Clear Ascult./Percussion - Airway Airway: Non-obstructed - Cardiovascular Regular Rate - Mental Status Mental Status: Alert & Oriented, Answers Appropriately - Pain Pain Scale: 3 - Nausea Vomiting Nausea Vomiting: Not Present - Hydration Hydration: Ice chips, Able to void - Discharge PostOp Status: Transfer Patient to floor
[2017-05-19] MEDS: *HR* OxyCODONE/APAP 5/325 TABLET PO PRN (00:44)
[2017-05-19] MEDS: *HR* Heparin 5,000 UNIT/ML VIAL SQ SCH ×3 (04:57→21:17)
[2017-05-19 05:35] LABS: Basophils % 0.1 %; Hematocrit 45.5 % (37.5-50.1); Hemoglobin 15.3 g/dL (12.9-16.9); Immature Granulocytes % 0.5 % (0-4); Lymphocytes # 0.7 K/mcL (0.6-4.6); Lymphocytes % 7.9 %; Mean Corpuscular HGB Conc 33.6 g/dL (31.6-35.5); Mean Corpuscular Hemoglobin 30.4 pg (28.0-33.3); Mean Corpuscular Volume 90.3 fL (83.0-100.0); Mean Platelet Volume 10.4 fL (9.4-12.4); Monocytes # 0.6 K/mcL (0.0-1.3); Monocytes % 7.1 %; Neutrophils # 6.9 K/mcL (1.6-8.9); Platelet Count 241 K/mcL (140-400); Red Blood Count 5.04 M/mcL (4.19-5.50); Red Cell Distribution Width 14.8 % (11.5-14.5); Segmented Neutrophils % 84.4 %
[2017-05-19 05:54] LABS: BUN/Creatinine Ratio 16 (6-26); Blood Urea Nitrogen 18 mg/dL (8-23); Calcium 8.9 mg/dL (8.6-10.3); Carbon Dioxide 22 mEq/L (23-29); Chloride 107 mEq/L (98-107); Glucose 109 mg/dL (70-105); Osmolality,Calculated 288 (280-300); Potassium 4.1 mEq/L (3.5-5.1); Sodium 138 mEq/L (136-145); eGFR For African Americans > 60 (> 60); eGFR For Non-African Americans > 60 (> 60)
[2017-05-19] MEDS ORDERED: Promethazine 12.5 MG in 0.9 % Sodium Chloride 50 ML IVPB PRN (06:36)
[2017-05-19] MEDS ORDERED: *HR* HYDROmorphone (PF) 1 MG/ML SYRINGE IVP ONE (06:36)
[2017-05-19] MEDS ORDERED: *HR* OxyCODONE/APAP 5/325 TABLET PO PRN (06:38)
--- NOTE | 2017-05-19 06:40 | Urology Progress Note ---
Date of Encounter: 05/19/17 Time of Encounter: 06:38 - Assessment and Plan (1) Calculus of left kidney Current Visit: Yes Status: Acute Assessment and plan: POD #1 s/p Left urs, laser and stent. Patient inadvertently pulled stent. Will order dilaudid, ketoralac, and phenergan. Anticipate improvement in pain in 24 hours as edema improves. Progress Note Narrative: Patient inadvertently pulled his stent this morning and is now in severe left flank pain. Objective Initial Vital Signs Temp Pulse Resp BP Pulse Ox 98.2 F 105 22 179/109 97 05/17/17 17:59 05/17/17 17:59 05/17/17 17:59 05/17/17 17:59 05/17/17 17:59 - General physical appearance Present: severe distress - Respiratory Present: normal expansion - Abdomen Present: soft - Labs 05/19/17 05:16 05/19/17 05:16 Diabetes panel 05/19/17 Range/Units 05:16 Sodium 138 (136-145) mEq/L Potassium 4.1 (3.5-5.1) mEq/L Chloride 107 (98-107) mEq/L Carbon Dioxide 22 L (23-29) mEq/L BUN 18 (8-23) mg/dL Creatinine 1.13 (0.70-1.30) mg/dL Glucose 109 H (70-105) mg/dL Calcium 8.9 (8.6-10.3) mg/dL Calcium panel 05/19/17 Range/Units 05:16 Calcium 8.9 (8.6-10.3) mg/dL Pituitary panel 05/19/17 Range/Units 05:16 Sodium 138 (136-145) mEq/L Potassium 4.1 (3.5-5.1) mEq/L Chloride 107 (98-107) mEq/L Carbon Dioxide 22 L (23-29) mEq/L BUN 18 (8-23) mg/dL Creatinine 1.13 (0.70-1.30) mg/dL Glucose 109 H (70-105) mg/dL Calcium 8.9 (8.6-10.3) mg/dL Adrenal panel 05/19/17 Range/Units 05:16 Sodium 138 (136-145) mEq/L Potassium 4.1 (3.5-5.1) mEq/L Chloride 107 (98-107) mEq/L Carbon Dioxide 22 L (23-29) mEq/L BUN 18 (8-23) mg/dL Creatinine 1.13 (0.70-1.30) mg/dL Glucose 109 H (70-105) mg/dL Calcium 8.9 (8.6-10.3) mg/dL Consult Discharge Plan - Plan Referrals: Marco Antonio Lucero MD [Partnered Physician] -
[2017-05-19] MEDS ORDERED: *HR* Promethazine 25 MG/ML VIAL IVP PRN (07:18)
[2017-05-19] MEDS ORDERED: OXYCODONE Oral CONC 10 MG/0.5 ML ORAL.SYG SL PRN (07:21)
[2017-05-19] MEDS: Ketorolac 15 MG/ML VIAL IVP SCH ×3 (11:51→23:40)
--- NOTE | 2017-05-19 12:31 | Internal Med Progress Note ---
Date of Encounter: 05/19/17 Time of Encounter: 12:29 - Assessment and plan (1) Calculus of left kidney Current Visit: Yes Status: Acute Assessment and plan: Urology eval noted s.p left ureteroscopy, laser lithotripsy, and stent placement 4/3 Removed his stent this a,m, pain is better controlled Continue management per urology (2) Vomiting Current Visit: Yes Status: Resolved Assessment and plan: Improved with symptomatic treatment Qualifiers: Vomiting type: unspecified Vomiting Intractability: non-intractable Nausea presence: with nausea Qualified Code(s): R11.2 - Nausea with vomiting, unspecified (3) DVT prophylaxis Current Visit: Yes Status: Acute Assessment and plan: SQ heparin - Time Spent With Patient Total time spent is greater than 50% in coordination of care (as documented) at patient's floor/unit and/or counseling patient: - Subjective Interval history: Seen and evaluated at bedside POD 1s/p Left urs, laser and stent, Patient inadvertently pulled stent and was in severe pain this a.m He was seen and examined this morning, post-medication in no form of distress - Constitutional Vitals: Temp Pulse Resp BP Pulse Ox 98.1 F 94 18 101/65 91 05/19/17 10:48 05/19/17 10:48 05/19/17 10:48 05/19/17 10:48 05/19/17 10:48 General appearance: Present: A&O X 3, pleasant, no acute distress - Head Head exam: Present: atraumatic, normocephalic - Eye Eye exam: Present: PERRL, conjuntiva pink, sclera anicteric Pupils: Present: PERRL - Neck Neck exam general surgery: Present: supple, trachea midline. Absent: lymphadenopathy - Respiratory Respiratory exam: Present: CTAB. Absent: accessory muscle use, rales, rhonchi, wheezes - Cardiovascular Cardiovascular exam: Present: RRR, +S1, +S2. Absent: diastolic murmur, gallop, rubs, systolic murmur - GI/Abdominal GI/Abdominal exam: Present: normal bowel sounds, soft, no peritoneal signs. Absent: distended, tenderness - Extremities Exam Extremities exam: Present: warm, radial pulses palpable and symmetrical. Absent : calf tenderness, cyanotic, pedal edema - Back Exam Back exam: Absent: CVA tenderness (L), CVA tenderness (R) - Neurological Exam Neurological exam: Present: alert, CN II-XII intact, oriented X3, no focal deficits. Absent: pronater drift, facial droop, speech deficit - Skin Skin exam: Present: dry, intact Internal Medicine: Result - Labs CBC & Chem 7: 05/19/17 05:16 05/19/17 05:16 Labs: Short CBC 05/19/17 Range/Units 05:16 WBC 8.2 (4.3-11.1) K/mcL Hgb 15.3 (12.9-16.9) g/dL Hct 45.5 (37.5-50.1) % Plt Count 241 D (140-400) K/mcL Neutrophils # 6.9 (1.6-8.9) K/mcL BMP 05/19/17 05:16 Sodium 138 Potassium 4.1 Chloride 107 Carbon Dioxide 22 L BUN 18 Creatinine 1.13 Glucose 109 H Calcium 8.9 - Impressions Impressions Fluoroscopy 05/18/17 16:35 IMPRESSION: Intraprocedural fluoroscopic spot images as above. See separate procedure report for more information. D/ / Ji Escobar MD / Ji Escobar MD Interpreting Provider: Ji Escobar MD X-Ray 05/18/17 16:35 IMPRESSION: Intraprocedural fluoroscopic spot images as above. See separate procedure report for more information. D/ / Ji Escobar MD / Ji Escobar MD Interpreting Provider: Ji Escobar MD Consult Discharge Plan - Plan Referrals: Marco Antonio Lucero MD [Partnered Physician] -
[2017-05-19] MEDS ORDERED: 0.9 % Sodium Chloride 1,000 ML IVC SCH (14:17)
[2017-05-20] MEDS: *HR* Heparin 5,000 UNIT/ML VIAL SQ SCH ×2 (06:01→12:35)
[2017-05-20] MEDS: Ketorolac 15 MG/ML VIAL IVP SCH ×2 (06:02→12:35)
--- NOTE | 2017-05-20 07:53 | Urology Progress Note ---
Date of Encounter: 05/20/17 Time of Encounter: 07:52 - Assessment and Plan (1) Calculus of left kidney Current Visit: Yes Status: Acute Assessment and plan: Postop day #2 status post left ureteroscopy. His pain control has improved. I think it would be reasonable to discharge him home. He can follow-up with me in 3-4 weeks and I will order a renal and bladder ultrasound prior to that visit to confirm there is no residual hydronephrosis. Progress Note Narrative: Postop day #2 status post left ureteroscopy, laser lithotripsy and stent placement. He removed his stent on postoperative day #1 and had severe pain. Currently, he is feeling much better and wishes to go home. Objective Initial Vital Signs Temp Pulse Resp BP Pulse Ox 98.2 F 105 22 179/109 97 05/17/17 17:59 05/17/17 17:59 05/17/17 17:59 05/17/17 17:59 05/17/17 17:59 - General physical appearance Present: well developed, well nourished, no distress - Respiratory Present: normal respiratory effort - Abdomen Present: soft - Labs 05/19/17 05:16 05/19/17 05:16 Consult Discharge Plan - Plan Referrals: Marco Antonio Lucero MD [Partnered Physician] -
[2017-05-20 10:39] VITALS: BP 143/70
--- NOTE | 2017-05-20 12:26 | Discharge Summary ---
Orders not resulted at time of discharge: Pending orders 05/18/17 17:14 Calculi (stone) Analysis Routine Date of Encounter: 05/20/17 Time of Encounter: 12:25 - Discharge Diagnosis (1) Calculus of left kidney Priority: Primary Status: Acute (2) Vomiting Priority: Primary Status: Resolved Qualifiers: Vomiting type: unspecified Vomiting Intractability: non-intractable Nausea presence: with nausea Qualified Code(s): R11.2 - Nausea with vomiting, unspecified (3) DVT prophylaxis Priority: Secondary Status: Chronic (4) Hypoxia Priority: Secondary Status: Acute Comments: did not qualify for home O2 Hospital course: Mr. Redman is a 71 year old male with supposedly no medical complains who was placed on observation for renal colic, as well as renal stones, he underwent Left urs, laser and stent on 05/18 and inadvertently pulled his stent on 05/19 requiring more IVF and pain control. His labs have been normal and his symptoms have resolved He did have some hypoxia requring O2 supplementation-patient thinks he ay have COPD. His 6 min walk test was negative. He is seen and examined this a.m, asymptomatic no new complains, no flank pain or CVA tenderness, urine is clear Stale to be discharged home with pain control,encouraged liberal fluid intake Follow up with PCP and Urology in 2-4 weeks 3 mins spent on tobacco cessation counselling Discharge discussed with: patient, nurse, case management Time spent discussing smoking cessation with patient: 3 to 10 minutes - Time Spent with Patient Total time spent providing and/or coordinating discharge services: Less than 30 minutes - Discharge Medications Prescriptions: OxyCODONE/APAP 5/325 [Percocet 5/325 MG] 1 each PO Q8HR PRN 6 Days #15 tablet PRN Reason: Pain Acetaminophen [8 Hour] 650 mg PO Q8H PRN #20 tablet.er PRN Reason: Mild Pain Home Medications: Acetaminophen [8 Hour] 650 mg PO Q8H PRN #20 tablet.er 05/20/17 [Rx] OxyCODONE/APAP 5/325 [Percocet 5/325 MG] 1 each PO Q8HR PRN 6 Days #15 tablet [Rx] Allergies/Adverse Reactions: 3 Allergy/AdvReac Type Severity Reaction Status Date / Time No Known Allergies Allergy Verified 05/17/17 20:41 Date of admission: 05/17/17 20:52 Primary care physician: PCP NONE Consults: 05/19/17 09:02 Consult to Invasive Line Access Team [CONS] Routine Reason for Consult: unable to get IV access Line Type: EPIV Time Notified: 09:02 Call Completed: Yes Discharging clinician: Leeroy Lofton Anticipated date of discharge: 05/20/17 - Constitutional Vitals: Temp Pulse Resp BP Pulse Ox 97.9 F 62 16 143/70 94 05/20/17 10:30 05/20/17 10:30 05/20/17 10:30 05/20/17 10:30 05/20/17 12:09 General appearance: Present: A&O X 3, pleasant, no acute distress - Head Head exam: Present: atraumatic, normocephalic - Eye Eye exam: Present: PERRL, conjuntiva pink, sclera anicteric - Neck Neck exam general surgery: Present: supple, trachea midline. Absent: lymphadenopathy - Respiratory Respiratory exam: Present: CTAB. Absent: accessory muscle use, rales, rhonchi, wheezes - Cardiovascular Cardiovascular exam: Present: RRR, +S1, +S2. Absent: diastolic murmur, gallop, rubs, systolic murmur - GI/Abdominal GI/Abdominal exam: Present: normal bowel sounds, soft, no peritoneal signs. Absent: distended, tenderness - Extremities Exam Extremities exam: Present: warm, radial pulses palpable and symmetrical. Absent : calf tenderness, cyanotic, pedal edema - Back Exam Back exam: Absent: CVA tenderness (L), CVA tenderness (R) - Neurological Exam Neurological exam: Present: CN II-XII intact, oriented X3, no focal deficits. Absent: pronater drift, facial droop, speech deficit - Skin Skin exam: Present: dry, intact - Patient Status Disposition: Home, Self-Care Condition: Good Functional capacity at discharge: independent ambulation Overall status at discharge: patient is back to baseline - Discharge Instructions Instructions: Kidney Stones (DC) Follow Up With: Marco Antonio Lucero MD [Partnered Physician] - - Diet and Activity Activity: resume usual activities as tolerated Diet: regular diet - VTE Documentation of Mechanical Device: Intermittent pneumatic compression device
== END 2017-05-20 15:31 | disposition home or self-care (01) ==
LOC: EMEROO 17:57 → 3ANU 17:57 → SUATTDRO 20:52 → 3ANU 22:01
PROVIDERS: ADMIT Internal Medicine; ATTEND Student in an Organized Health Care Education/Training Program